=== PATIENT | male | born 1970 | race Caucasian/White ===

== ENCOUNTER 2023-02-26 08:30 | Emergency (ER) | payer OTHER, SELFPAY ==
--- NOTE | ~2023-02-26 | XR_ITS ---
Right Shoulder Technique: AP and scapular Y views were obtained. Clinical History: Pain Findings: No fracture or dislocation is seen. Osseous alignment is anatomic. The glenohumeral and acr omioclavicular joint spaces are preserved. Soft tissues are unremarkable. Impression: Unremarkable right shoulder radiographs. Reviewed, dictated and finalized at [facility]. Impression: Unremarkable right shoulder radiographs.
--- NOTE | ~2023-02-26 | XR_ITS ---
Left Shoulder Technique: AP and scapular Y views were obtained. Clinical History: Pain Findings: No fracture or dislocation is seen. Osseous alignment is anatomic. The glenohumeral and acr omioclavicular joint spaces are preserved. Small inferomedial humeral head osteophyte present. Soft t issues are unremarkable. Impression: Mild degenerative change at the humeral head, as above. Reviewed, dictated and finalized at location . Impression: Mild degenerative change at the humeral head, as above.
[2023-02-26 08:30] VITALS: BP 157/102; PULSE 110; RESP 16; TEMP 37.2; O2SAT 97
[2023-02-26] MEDS: KETOROLAC 10 MG TABLET PO (09:40)
--- NOTE | 2023-02-26 10:02 | ED.UPPEXIN ---
HPI - Extremity Injury (Upper) General Chief Complaint: Extremity Injury, Upper Stated Complaint: left shoulder pain Time Seen by Provider: 02/26/23 08:39 Source: patient Mode of arrival: ambulatory Limitations: no limitations History of Present Illness HPI narrative: this is a 52-year-old male that presents after he had a fall her as he slipped going down stairs on to his left arm causing his shoulder to have pain that he rates about a 6/10 in his left shoulder and also his right shoulder with no jules noticeable deformities as a strong brisk radial pulse on left and right has decreased range of motion in his left shoulder right shoulder seems to have full range of motion no other injuries no loss of consciousness. complaint: injury to: left, right and shoulder Onset (ago): hour(s) Handedness: right Place: home Severity: moderate Severity scale (1-10): 6 Exacerbating factors: movement of extremity Context: fall Associated symptoms: denies other symptoms Treatments prior to arrival: cold therapy Related Data Allergies Allergy/AdvReac Type Severity Reaction Status Date / Time No Known Allergies Allergy Verified 02/26/23 09:23 Review of Systems Review of Systems: All systems reviewed & are unremarkable except as noted in HPI and below PMFSH Past Medical History Medical History Patient denies medical problems Exam Const: General: healthy appearing Nutritional Appearance: well nourished Orientation/consciousness: patient oriented x3 HENMT: Head: normal to inspection Eyes: Conjunctivae: conjunctivae normal Pupils: Equal, round and reactive pupils present EOM: EOMs intact bilaterally Neck: Neck: normal visual inspection Chest: Chest palpation & inspection: normal inspection of the chest Resp: Effort & Inspection: normal respiratory effort Auscultation: clear to auscultation bilaterally Cardio: Rate: regular rate Rhythm: regular rhythm GI: GI Palp: Yes Soft to palpation Back/Spine/Pelvis: Back: no CVA tenderness Skin: General skin exam: normal color Rashes: no rashes Wounds: no wounds Neuro: General: patient oriented x3, moves all extremities and no meningeal signs Extrem: General: normal to inspection Other: has mild decreased range of motion of his left shoulder secondary to pain right shoulder has full range of motion there is no visual deformities as a strong brisk radial pulse bilaterally. Psych: Mental Status: mental status grossly normal Affect: normal affect Course Course Emergency Course: Patient received pain medication and reduce his pain level, blood pressure elevated 157/102 x-rays performed and reviewed with patient which shows no acute injury to either shoulder. Vital Signs Vital signs: Vital Signs Temperature 37.2 C 02/26/23 08:30 Pulse Rate 110 H 02/26/23 08:30 Respiratory Rate 16 02/26/23 08:30 Blood Pressure 157/102 H 02/26/23 08:30 Pulse Oximetry 97 02/26/23 08:30 Oxygen Delivery Room Air 02/26/23 08:30 Temperature 37.2 C 02/26/23 08:30 Pulse Rate 110 H 02/26/23 08:30 Respiratory Rate 16 02/26/23 08:30 Blood Pressure 157/102 H 02/26/23 08:30 Pulse Oximetry 97 02/26/23 08:30 Oxygen Delivery Room Air 02/26/23 08:44 Critical Care Time Critical Care Time Critical Care Time: No Discharge Plan Discharge Clinical Impression: Left shoulder strain Qualifiers: Encounter type: initial encounter Qualified Code(s): S46.912A - Strain of unspecified muscle, fascia and tendon at shoulder and upper arm level, left arm, initial encounter Patient Disposition: Home, Self-Care Condition: Stable Instructions: Antibiotic Form, Rotator Cuff Injury (ED) Additional Instructions: advised take medicine as prescribed, follow-up with Primary/ establish with primary for further evaluation and treatment. Prescriptions: New tramadol 50 mg tablet 50 mg PO Q6H PRN (R
[2023-02-26 10:20] VITALS: BP 156/99; PULSE 103; RESP 14; O2SAT 99
== END 2023-02-26 11:08 | disposition home or self-care (01) ==
PROVIDERS: Emergency Provider Emergency Medicine
DX: S46.912A Strain of unspecified muscle, fascia and tendon at shoulder and upper arm level, left arm, initial encounter (principal); W10.9XXA Fall (on) (from) unspecified stairs and steps, initial encounter; Y92.009 Unspecified place in unspecified non-institutional (private) residence as the place of occurrence of the external cause
CPT/HCPCS: 73030; 99284; A9270

== ENCOUNTER 2023-04-25 22:25 | Emergency (ER) | payer OTHER, SELFPAY ==
--- NOTE | ~2023-04-25 | XR_ITS ---
XR shoulder LT min 2V DATE: 04/25/2023 23:16 INDICATION: Fall. Left shoulder pain. TECHNIQUE: 4 views COMPARISON: 02/26/2023 left shoulder FINDINGS: There is mild degenerative spurring of the left humeral head consistent with left glenohume ral osteoarthritis. There is mild superior subluxation of the humeral head at the glenohumeral joint, with diminished subacromial space, likely due to rotator cuff tear or atrophy. Normal alignment at the left acromioclavicular and sternoclavicular joints. No fracture or dislocation, periosteal reaction or bone destruction or abnormal soft tissue calcifica tion of the left shoulder is noted. IMPRESSION: Mild left glenohumeral osteoarthritis Probable rotator cuff tear or atrophy Reviewed, dictated and finalized at location [facility].
--- NOTE | ~2023-04-25 | CT_ITS ---
EXAMINATION: CT brain wo con DATE: 04/25/2023 23:17 INDICATION: Fall. Head injury. Posterior head laceration. TECHNIQUE: Computed tomography (CT) of the head was performed without intravenous contrast. The mA wa s adjusted according to patient size. Iterative reconstruction technique was employed. Exam dose: 60 5.33 mGy-cm total exam DLP. COMPARISON: None FINDINGS: No intracranial mass lesion or hemorrhage or cerebrovascular accident. No midline shift or mass effect. Normal ventricular size. Normal cervantes-white matter differentiation. No subdural or epidural hematoma. 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 No coup or contrecoup intracrani al injury is noted. No skull fracture or bone destruction. The mastoid air cells and paranasal sinuses are normally developed and aerated with minimal mucoperio steal thickening of the right maxillary and right sphenoid sinuses. IMPRESSION: Skin chimnay for posterior left parietal scalp laceration; no skull fracture or acute in tracranial abnormality Reviewed, dictated and finalized at [facility]. Reviewed, dictated and finalized at [facility]. IMPRESSION: Skin chinmay for posterior left parietal scalp laceration; no skul l fracture or acute intracranial abnormality
[2023-04-25 22:25] VITALS: PULSE 121; RESP 14; TEMP 36.6; O2SAT 98
[2023-04-25 22:38] VITALS: BP 137/96
--- NOTE | 2023-04-25 22:55 | ED.UPPEXIN ---
HPI - Extremity Injury (Upper) General Chief Complaint: Extremity Injury, Upper Stated Complaint: left shoulder injury; head lac Source: patient Mode of arrival: ambulatory Limitations: no limitations History of Present Illness HPI narrative: this is a 52-year-old male that presents after he had a fall going up steps and fell backwards hitting his head causing a gaping laceration to the posterior scalp on the left, also has a left shoulder pain and discomfort and decreased range of motion. The patient is intoxicated and not sure if he lost consciousness or not, currently pain level as tolerated, but has decreased range of motion of his left arm and shoulder, and laceration measuring about 5cm. Currently there is no nausea vomiting, no chest pain no shortness of breath. MD complaint: injury to: left and shoulder Onset (ago): hour(s) Other Extremity Injury: Left: shoulder ( tender with reduced range of motion) Handedness: right Place: home Severity: moderate Severity scale (1-10): 4 Relieving factors: immobilization Exacerbating factors: movement of extremity Context: fall Related Data Allergies Allergy/AdvReac Type Severity Reaction Status Date / Time No Known Allergies Allergy Verified 02/26/23 09:23 Review of Systems Review of Systems: All systems reviewed & are unremarkable except as noted in HPI and below PMFSH Past Medical History Medical History Patient denies medical problems Exam Const: General: healthy appearing and no acute distress Nutritional Appearance: well nourished Limitations: no limitations HENMT: Head: normal to inspection Eyes: Conjunctivae: conjunctivae normal Pupils: Equal, round and reactive pupils present Neck: Neck: normal visual inspection Chest: Chest palpation & inspection: normal inspection of the chest Resp: Effort & Inspection: normal respiratory effort Auscultation: clear to auscultation bilaterally Cardio: Rate: regular rate Rhythm: regular rhythm GI: GI Palp: Yes Soft to palpation Auscultation: normal bowel sounds Back/Spine/Pelvis: Back: no CVA tenderness Skin: General skin exam: normal color Rashes: no rashes Wounds: wounds noted Neuro: General: patient oriented x3, moves all extremities and no meningeal signs Extrem: Other: Limited range of motion left shoulder secondary to pain Psych: Attitude: cooperative Course Vital Signs Vital signs: Vital Signs Temperature 36.6 C 10/28/23 22:25 Pulse Rate 121 H 04/25/23 22:25 Respiratory Rate 14 04/25/23 22:25 Pulse Oximetry 98 04/25/23 22:25 Oxygen Delivery Room Air 04/25/23 22:25 Temperature 36.6 C 04/25/23 22:25 Pulse Rate 121 H 04/25/23 22:25 Respiratory Rate 14 04/25/23 22:25 Blood Pressure 137/96 H 04/25/23 22:38 Pulse Oximetry 98 04/25/23 22:25 Oxygen Delivery Room Air 04/25/23 22:25 Procedures Laceration Laceration 1: Date: 04/25/23 Time: 22:59 Site: scalp Side (If applicable): left Size (cm): 5 Description: linear Pre-repair: irrigated extensively ====== Skin Level ====== Skin layer closed with: chinmay ====== Subcutaneous Layer ====== ====== Muscle Layer ====== ====== Tendon Layer ====== Discharge Plan Discharge Clinical Impression: Left shoulder strain, Laceration Patient Disposition: Home, Self-Care Condition: Stable Instructions: Antibiotic Form, Laceration (ED), Rotator Cuff Injury (ED) Additional Instructions: take medicine as prescribed, and follow up with primary for further evaluation of left shoulder with possible MRI, and can use Debrox ear drops daily for 1 week for clogged ear. Prescriptions: New oxycodone-acetaminophen [Percocet] 5-325 mg tablet 1 tablet PO Q6H PRN (Reason: pain) Qty: 20 0RF Debrox 6.5 % drops 5 drp EACH EAR Q12H 4 Days Qty: 15 0RF Follow-up/Re
[2023-04-25] MEDS: KETOROLAC 10 MG TABLET PO (23:30)
== END 2023-04-26 01:00 | disposition home or self-care (01) ==
PROVIDERS: Emergency Provider Emergency Medicine
DX: S01.01XA Laceration without foreign body of scalp, initial encounter (principal); S49.92XA Unspecified injury of left shoulder and upper arm, initial encounter; W10.8XXA Fall (on) (from) other stairs and steps, initial encounter; Y92.009 Unspecified place in unspecified non-institutional (private) residence as the place of occurrence of the external cause
CPT/HCPCS: 12001; 70450; 73030; 99284; A4565; A9270

== ENCOUNTER 2023-05-23 18:16 | Emergency (ER) | payer OTHER, SELFPAY ==
--- NOTE | ~2023-05-23 | CT_ITS ---
EXAMINATION: CT brain wo con DATE: 05/23/2023 18:58 INDICATION: Fall,hitting back of head, intoxication . TECHNIQUE: Computed tomography (CT) of the head was performed without intravenous contrast. The mA wa s adjusted according to patient size. Iterative reconstruction technique was employed. The dose-lengt h product was 605.33 mGy-cm. COMPARISON: 04/25/2023. FINDINGS: No acute intracranial hemorrhage or extra-axial fluid collection. No hydrocephalus, mass, or herniation. No acute ischemic infarct. Unremarkable dural venous sinus attenuation. No acute osseous abnormality. Right posterior scalp laceration/contusion with skin chinmay. Mild right maxillary mucosal thickening, the remaining aerated spaces are clear. IMPRESSION: No acute intracranial process. Reviewed, dictated and finalized at location [facility]. 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
--- NOTE | ~2023-05-23 | CT_ITS ---
EXAMINATION: CT cervical spine wo con DATE: 05/23/2023 18:59 INDICATION: Fall, intoxication TECHNIQUE: Computed tomography (CT) of the cervical spine was performed without intravenous contrast. Automated exposure control and iterative reconstruction technique were employed. The dose-length pro duct was 601.20 mGy-cm. COMPARISON: None. FINDINGS: Exam mildly limited by motion artifact. Vertebral Body Alignment: Intact. Craniocervical and atlantoaxial alignment: Moderate degenerative change. Alignment intact. Osseous structures/fracture: No evidence of a lytic or blastic process in the visualized spine. No e vidence of acute fracture. Cervical soft tissues: The paraspinal soft tissues planes are maintained. Degenerative changes: Multilevel degenerative disc disease and facet arthropathy. Multilevel mild-sev ere bilateral neural foraminal narrowing on a degenerative basis. No severe central canal stenosis. IMPRESSION: Examination is mildly motion limited in the mid and lower cervical spine. No acute fracture or trauma tic malalignment in the cervical spine. Reviewed, dictated and finalized at location [facility]. 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 No ac nirmala fracture or traumatic malalignment in the cervical spine.
--- NOTE | 2023-05-23 18:22 | ED.ALCOHOL ---
HPI - Alcohol General Chief Complaint: Wound/Laceration Stated Complaint: Fall/laceration back of head Time Seen by Provider: 05/23/23 18:18 Source: patient and EMS Mode of arrival: EMS Limitations: intoxication History of Present Illness HPI narrative: 53 yo M bought in the ER by EMS from a bar. He was heavily intoxicated and found down in a bar, with a pool of blood on the ground and a head laceration. Pt was intoxicated and could not provide history. He did not know how he fell nor how the fall happened. He did not know if he lost consciousness. He did not know how much alcohol he consumed. 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 Amount of alcohol consumed: Unknown Treatments prior to arrival: none Related Data Allergies Allergy/AdvReac Type Severity Reaction Status Date / Time No Known Allergies Allergy Verified 05/23/23 18:37 Review of Systems Review of Systems: ROS could not be obtained due to the following reasons: patient intoxicated [facility] Social History Social History Smoking status: Never smoker Alcohol intake: current Drinks per week: 6 Substance use: never Lack of Transportation: No Lack of Food: Never True Current Housing: I Have Housing Concerned About Future Housing: No Difficulty Paying Gas/Electric Bills: No Difficulty Paying for Meds: No Currently Unemployed: No Education: High School Diploma/GED Difficulty w/ Childcare or Family Care: No Exam Const: General: no acute distress and alert Orientation/consciousness: confusion Limitations: altered mental status Other: Pt intoxicated HENMT: Ears: external ears normal Face/Nose/Sinus: Normal external nose present Face and sinus: normal facial exam Other: 5 cm laceration in the posterior scalp Resp: Effort & Inspection: normal respiratory effort Auscultation: clear to auscultation bilaterally Cardio: Rate: regular rate Rhythm: regular rhythm GI: Auscultation: normal bowel sounds Skin: General skin exam: normal color Rashes: no rashes Wounds: wounds noted Other: Scalp laceration Neuro: General: moves all extremities Speech: normal speech Extrem: General: normal to inspection MDM - Alcohol MDM Narrative Medical decision making narrative: 53 yo M presents to ED for alcohol intoxication and fall that he sustained a 5 cm laceration in his posterior scalp. This is his second presentation to the ED within 1 month due to injuries related to alcohol intoxication. His laceration was repaired via chinmay (see procedure note). Patient was given 1 L NS followed by D5 1/2NS 125 cc/hr and then given 100 mg IV thiamine. Labs including CBC, CMP, Mg and Phos, UA and UDS are unremarkable except for BAL of 385 mg/dl, which qualifies him for severe intoxication. CT head and C-spine negative. Nonetheless patient is alert, awake, and voices his own wishes. Offered admission and hospitalization until he's completely sober (which can take up to 14 hours), and monitor for alcohol withdrawal but patient refused. He has a competent neighbor whom he called to pick him up from the ED. Patient left AMA with the neighbor. Said neighbor will take him home. Differential Diagnosis Differential diagnosis: Likely alcohol intoxication, alcohol ketoacidosis and alcohol withdrawal syndrome Medical Records Attestation: I reviewed the patient's medical records. Lab Data Attestation: I reviewed the patient's lab results. Imaging Data Attestation: I personally reviewed and interpreted this imaging study as follows: My impression: Agree with radiologist's findings Discharge Plan Discharge Clinical Impression: Alcohol intoxication Qualifiers: Complication of substance-induced condition: uncomplicated Qualified Code(s): F10.920 - Alcohol use, unspecified with intoxication, uncomplicated Laceration of head Qualifiers: Encounter type: initial encounter Locatio
[2023-05-23 18:33] VITALS: BP 132/87; PULSE 99; RESP 18; TEMP 37; O2SAT 100
[2023-05-23] MEDS: DEXTROSE 5%/0.45% SOD CHL 1,000 ML 125 ML IV CONT (19:16)
[2023-05-23 19:18] LABS: Basophils Absolute Auto 0.03 K/mm3 (0.00-0.10); Basophils Percent Auto 0.5 % (0.0-1.0); Eosinophils Absolute Auto 0.05 K/mm3 (0.02-0.50); Eosinophils Percent Auto 0.8 % (1.0-6.0); Hemoglobin 15.4 g/dL (14.0-18.0); Immature Granulocyte Absolute 0.05 K/mm3 (0.00-0.00); Immature Granulocyte Percent A 0.8 % (0.0-0.0); Lymphocytes Absolute Auto 2.04 K/mm3 (1.10-4.50); Lymphocytes Percent Auto 30.8 % (18.0-42.0); Mean Corpuscular HGB Conc 35.8 g/dL (32.0-36.0); Mean Corpuscular Hemoglobin 31.6 pg (27.0-31.0); Mean Corpuscular Volume 88.3 fL (78.0-102.0); Monocytes Percent Auto 7.6 % (2.0-11.0); Neutrophils Percent Auto 59.5 % (50.0-70.0); Platelet Count Result 157 K/mm3 (150-420); Red Blood Count 4.87 M/mm3 (4.70-6.10); White Blood Count 6.6 K/mm3 (4.8-10.8)
[2023-05-23 19:28] LABS: Amphetamine Screen Urine Negative (Negative); Barbiturate Screen Urine Negative (Negative); Benzodiazepines Screen Urine Negative (Negative); Cannabinoid Screen Urine Negative (Negative); Cocaine Screen Urine Negative (Negative); Methadone Screen Urine Negative (Negative); Opiate Screen Urine Negative (Negative); Phencyclidine Screen Urine Negative (Negative)
[2023-05-23 19:34] LABS: Alanine Aminotransferase 40 U/L (16-63); Albumin Level 3.5 g/dL (3.4-5.0); Alkaline Phosphatase 95 U/L (46-116); Anion Gap 7 mmol/L (8-16); Aspartate Amino Transferase 18 U/L (15-37); Bilirubin,Total 0.3 mg/dL (0.00-1.00); Blood Urea Nitrogen 10 mg/dL (7-18); Calcium 8.1 mg/dL (8.5-10.1); Carbon Dioxide 31 mmol/L (21-32); Chloride 101 mmol/L (98-108); Estimated CRCL calculation 85 ml/min; Estimated Glomerular Filt Rate > 60; Glucose 134 mg/dL (70-99); Magnesium 2.2 mg/dL (1.8-2.4); Osmolality Calculated 289 mOsm/kg (285-295); Potassium 3.6 mmol/L (3.5-5.1); Sodium 139 mmol/L (136-145); Total Protein 6.9 g/dL (6.4-8.2)
[2023-05-23 19:44] LABS: Ethanol 358 mg/dL (0-6)
[2023-05-23 19:48] LABS: Appearance Urine Clear (Clear); Bilirubin Urine Negative (Negative); Blood Urine Negative (Negative); Color Urine Light Yellow (Yellow); Glucose Urine UA Negative (Negative); Ketones Urine Negative (Negative); Leukocyte Esterase Ur Negative LEU/UL (Negative); Nitrate Urine Negative (Negative); Protein Urine Negative (Negative); Specific Grav Ur <= 1.005 (1.010-1.020); Urobilinogen Urine 0.2 mg/dL (0.2-1.0); pH Urine 5.5 (5.0-8.0)
[2023-05-23 19:49] LABS: Add Urine Microscopic? NO
--- NOTE | 2023-05-23 19:53 | PC.NURSE ---
ERP AWARE OF HIGH ETOH BLOOD LEVEL, IVF CONTINUED.
[2023-05-23] MEDS: THIAMINE HCL 200 MG/2 ML VIAL 100 MG IV PUSH (20:07)
--- NOTE | 2023-05-23 20:10 | PC.NURSE ---
THIS RN AND DR LESLIE SPOKE WITH PATIENT FOR ADMISSION FOR OBSERVATION, PATIENT REFUSED, DOES NOT WANT TO STAY IN FACILITY. WANTS TO SIGN OUT AMA, PATIENT UNDERSTANDS RISKS AND CONSEQUENCES OF LEAVING WHILE UNDER THE INFLUENCE OF ETOH, VERBALIZES UNDERSTANDING. NEIGHBOR IS HERE TO TAKE PATIENT HOME.
== END 2023-05-23 20:24 | disposition left against medical advice (07) ==
PROVIDERS: Emergency Provider Emergency Medicine; PCP Family Medicine
DX: S01.01XA Laceration without foreign body of scalp, initial encounter (principal); F10.920 Alcohol use, unspecified with intoxication, uncomplicated; W19.XXXA Unspecified fall, initial encounter
CPT/HCPCS: 12002; 36415; 70450; 72125; 80053; 80307; 81003; 82948; 83735; 84100; 84600; 85025; 96361; 96374; 99284; J3411; L0150

== ENCOUNTER 2024-03-06 19:54 | Emergency (ER) | payer SELFPAY ==
[2024-03-06 19:54] VITALS: BP 160/106; PULSE 102; RESP 18; TEMP 36.8; O2SAT 100
--- NOTE | 2024-03-06 19:56 | ED.UPPEXIN ---
HPI - Extremity Injury (Upper) General Chief Complaint: Wound/Laceration Stated Complaint: Finger Injury Time Seen by Provider: 03/06/24 19:55 Source: patient Mode of arrival: ambulatory Limitations: no limitations History of Present Illness HPI narrative: Patient is a 53-year-old male who was using a impact drill and it dug into his left middle finger this evening. Tetanus shot up-to-date. complaint: injury to: left, hand and finger ( Middle) Onset (ago): minute(s) (30) Other Extremity Injury: Left: fingers and hand Other injuries: none Place: home Severity: moderate Severity scale (1-10): 4 Relieving factors: immobilization Exacerbating factors: movement of extremity Context: injury ( impact drill) Associated symptoms: denies other symptoms Treatments prior to arrival: bandage Related Data Allergies Allergy/AdvReac Type Severity Reaction Status Date / Time No Known Allergies Allergy Verified 06/09/23 09:17 Review of Systems Review of Systems: All systems reviewed & are unremarkable except as noted in HPI and below Constitutional: Constitutional: Reports no additional constitutional complaints Eyes: Eyes: Reports no additional eye complaints ENT: Reports system reviewed and no additional complaints, except as documented Cardiovascular: Cardiovascular: Reports no additional cardiovascular complaints Respiratory: Respiratory: Reports no additional respiratory complaints Gastrointestinal: Gastrointestinal: Reports no additional gastrointestinal complaints Genitourinary: Genitourinary: Reports no additional male genitourinary complaints Musculoskeletal: Musculoskeletal: Reports no additional musculoskeletal complaints Integumentary/Breasts: Skin/Breast: Reports system reviewed and no additional complaints, except as docu Neurologic: Reports system reviewed and no additional complaints, except as documented Psychiatric: Psychiatric: Reports no additional psychiatric complaints Endocrine: Endocrine: Reports no additional endocrine complaints Hematologic/Lymphatic: Hematologic/Lymphatic: Reports no additional hematologic/lymphatic complaints Allergic/Immunologic: Allergic/Immunologic: Reports no additional allergic/immunologic complaints PMFSH Social History Social History Smoking status: Never smoker Alcohol intake: current Drinks per week: 6 Substance use: never Lack of Transportation: No Lack of Food: Never True Current Housing: I Have Housing Concerned About Future Housing: No Difficulty Paying Gas/Electric Bills: No Difficulty Paying for Meds: No Currently Unemployed: No Education: High School Diploma/GED Difficulty w/ Childcare or Family Care: No Exam Const: General: healthy appearing Nutritional Appearance: well nourished Orientation/consciousness: patient oriented x3 HENMT: Head: normal to inspection Ears: external ears normal Face/Nose/Sinus: Normal external nose present Eyes: Conjunctivae: conjunctivae normal Pupils: Equal, round and reactive pupils present EOM: EOMs intact bilaterally Neck: Neck: normal visual inspection Chest: Chest palpation & inspection: normal inspection of the chest Resp: Effort & Inspection: normal respiratory effort and not labored Auscultation: clear to auscultation bilaterally and no crackles Cardio: Rate: regular rate Rhythm: regular rhythm Heart sounds: no murmurs GI: Inspection: non-distended GI Palp: Yes Soft to palpation and No Tenderness to palpation present (GI) Auscultation: normal bowel sounds : General: Yes bladder normal to palpation Back/Spine/Pelvis: Back: no CVA tenderness Skin: General skin exam: normal color Rashes: no rashes Wounds: wound noted and wounds noted Other: left hand middle finger palmar surface has a deep laceration jagged edges from the PIP to the DIP with oozing arterial blood; distally neurovascularly intact Neuro:
--- NOTE | 2024-03-06 20:09 | PC.NURSE ---
pressure dressing to left hand, third digit placed using folded 4x4 and coban. having patient hold pressure as well
--- NOTE | 2024-03-06 21:05 | PC.NURSE ---
Dr Olson in room updating patient on plan of care.
--- NOTE | 2024-03-06 21:41 | PC.NURSE ---
patient is resting quietly on stretcher with family at the bedside. pressure dressing remains clean and intact to left hand, third digit
[2024-03-06] MEDS: LIDOCAINE HCL 1% LOCAL INJ 10 ML VIAL 5 ML INFILTRATE (22:05)
[2024-03-06] MEDS: NEOMYCIN/POLYMYXIN/BACITRACIN OINTMENT PACKET 1 PACKET TOPICAL (22:06)
--- NOTE | 2024-03-06 22:33 | PC.NURSE ---
resting on stretcher with family at the bedside. waiting for laceration repair.
--- NOTE | 2024-03-06 23:01 | PC.NURSE ---
Dr Olson at the bedside
[2024-03-07] MEDS: CEPHALEXIN 500 MG CAPSULE PO
--- NOTE | 2024-03-07 00:05 | PC.NURSE ---
dressing placed to left hand third digit by yolanda nichole, non stick dressing covered with kerlex. then finger splint placed and held in place by shayan. +csm to finger
[2024-03-07 00:20] VITALS: BP 152/104; PULSE 97; RESP 18; TEMP 37; O2SAT 98
== END 2024-03-07 00:20 | disposition home or self-care (01) ==
PROVIDERS: Emergency Provider Emergency Medicine; PCP Nurse Practitioner Family
DX: W27.8XXA Contact with other nonpowered hand tool, initial encounter (principal)
CPT/HCPCS: 12001; 99283; A9270

== ENCOUNTER 2024-03-18 11:57 | Outpatient (CLI) | payer BC, SELFPAY ==
--- NOTE | ~2024-03-18 | CT_ITS ---
EXAMINATION: CT hand LT w con DATE: 03/18/2024 12:54 INDICATION: Left hand third digit laceration and infection. TECHNIQUE: Computed tomography (CT) of the left hand was performed with 100 mL Omnipaque 350 intraven ous contrast. Automated exposure control and iterative reconstruction technique were employed. The do se-length product was 461.66 mGy-cm. COMPARISON: None FINDINGS: Bone alignment is normal. There is mild osteoarthritis of first carpometacarpal joint. Ther e is a laceration palmar to third distal interphalangeal joint. There is soft tissue swelling of the third digit with flexor tenosynovitis. There are tiny densities palmar to base of third distal phalan x. There is a chip fracture of palmar aspect of head of third middle phalanx. No specific evidence of osteomyelitis. IMPRESSION: 1. Chip fracture of palmar aspect of head of third middle phalanx. 2. Punctate densities palmar to base of third distal phalanx, which may be fracture fragments or fore ign bodies. 3. Soft tissue swelling of the third digit with flexor tenosynovitis. Reviewed, dictated and finalized at location [facility]. IMPRESSION: 1. Chip fracture of palmar aspect of head of third middle phalanx. 2. Punctate densities palmar to base of third distal phalanx, which may be frac ture fragments or foreign bodies. 3. Soft tissue swelling of the third digit with flexor tenosynovitis.
[2024-03-18 12:12] LABS: Basophils Absolute Auto 0.03 K/mm3 (0.00-0.10); Basophils Percent Auto 0.4 % (0.0-1.0); Eosinophils Absolute Auto 0.04 K/mm3 (0.02-0.50); Eosinophils Percent Auto 0.5 % (1.0-6.0); Hematocrit 47.9 % (40.0-54.0); Hemoglobin 17.1 g/dL (14.0-18.0); Immature Granulocyte Absolute 0.04 K/mm3 (0.00-0.00); Immature Granulocyte Percent A 0.5 % (0.0-0.0); Lymphocytes Absolute Auto 1.81 K/mm3 (1.10-4.50); Lymphocytes Percent Auto 24.2 % (18.0-42.0); Mean Corpuscular HGB Conc 35.7 g/dL (32-36); Mean Corpuscular Hemoglobin 31.4 pg (27.0-31.0); Mean Corpuscular Volume 87.9 fL (78.0-102.0); Mean Platelet Volume 10.1 fl (8.7-11.0); Monocytes Absolute Auto 0.54 K/mm3 (0.10-0.90); Monocytes Percent Auto 7.2 % (2.0-11.0); Neutrophils Absolute Auto 5.03 K/mm3 (1.70-7.20); Neutrophils Percent Auto 67.2 % (50.0-70.0); Platelet Count Result 190 K/mm3 (150-420); Red Blood Count 5.45 M/mm3 (4.70-6.10); Red Cell Distribution Width 11.9 % (11.6-14.4); White Blood Count 7.5 K/mm3 (4.8-10.8)
[2024-03-18 12:45] LABS: Alanine Aminotransferase 46 U/L (16-63); Albumin Level 4.1 g/dL (3.4-5.0); Alkaline Phosphatase 119 U/L (46-116); Anion Gap 6 mmol/L (4-12); Aspartate Amino Transferase 24 U/L (15-37); Bilirubin,Total 0.6 mg/dL (0.00-1.00); Blood Urea Nitrogen 8 mg/dL (7-18); Calcium 8.9 mg/dL (8.5-10.1); Carbon Dioxide 32 mmol/L (21-32); Chloride 102 mmol/L (98-108); Estimated Glomerular Filt Rate > 60; Glucose 146 mg/dL (70-99); Osmolality Calculated 291 mOsm/kg (285-295); Potassium 4.1 mmol/L (3.5-5.1); Sodium 140 mmol/L (136-145); Total Protein 7.4 g/dL (6.4-8.2)
[2024-03-18 13:10] LABS: CRP < 0.5 mg/dL (0.0-0.9)
== END 2024-03-18 11:58 | disposition home or self-care (01) ==
LOC: CHSLAB 11:59
PROVIDERS: PCP Family Medicine; Visit Provider Family Medicine
DX: L08.9 Local infection of the skin and subcutaneous tissue, unspecified (principal); S61.219A Laceration without foreign body of unspecified finger without damage to nail, initial encounter; S62.623A Displaced fracture of middle phalanx of left middle finger, initial encounter for closed fracture; M79.89 Other specified soft tissue disorders
CPT/HCPCS: 36415; 73201; 80053; 85025; 86140; Q9967